=== PATIENT | female | born 1990 | race African-American/Black ===

== ENCOUNTER 2019-04-23 11:22 | Emergency (ER) | payer OTHER ==
[2019-04-23 12:14] LABS: Bilirubin Negative (Negative); Blood, Urine Negative (Negative); Glucose, Urine (Dipstick) Negative (Negative); Leukocyte Small (Negative); Nitrite Negative (Negative); Protein, Urine (Dipstick) Negative (Neg-Trace); Urobilinogen 0.2 mg/dL (Less than 2)
[2019-04-23 12:16] LABS: Clarity Clear (Clear)
[2019-04-23 12:22] LABS: #Lymphocytes 1.6 thou/uL (1.20-3.40); #Monocytes 0.5 thou/uL (0.11-0.59); #Neutrophils 4.2 thou/uL (1.40-6.50); %Basophils 0.7 % (0.0-1.0); %Eosinophils 0.8 % (0.0-10.0); %Lymphocytes 24.6 % (21.0-51.0); %Monocytes 8.5 % (0.0-10.0); %Neutrophils 65.5 % (42.0-75.0); Hemoglobin 12.7 g/dL (12.0-16.0); Mean Corpuscular HGB CONC 32.7 g/dL (32.0-36.0); Mean Corpuscular Hemoglobin 29.9 pg (27.0-31.0); Mean Corpuscular Volume 91.4 fL (78.0-98.0); Mean Platelet Volume 6.6 fL (7.4-10.4); Platelet Count 287 thou/uL (130-400); RBC Distribution Width 11.9 % (11.5-14.5); Red Blood Cell (RBC) Count 4.24 mill/uL (4.20-5.40); White Blood Cell (WBC) Count 6.4 thou/uL (4.8-10.8)
[2019-04-23 12:25] LABS: Bacteria/HPF None Seen HPF (None Seen); RBC/HPF 0-3 HPF (0-3); Squamous Epithelial 0-3 HPF (0-3); WBC/HPF 0-3 HPF (0-3)
--- NOTE | 2019-04-23 12:41 | ULT ---
First trimester obstetrical ultrasound INDICATION: Pelvic pain with history of COMPARISON: None TECHNIQUE: Grayscale, color Doppler, spectral Doppler and in mode Doppler was obtained of the pelvis via transabdominal approach. FINDINGS: The uterus measures 11.1 x 9.0 x 9.3 cm. There is a single live intrauterine gestation seen within the uterus. A pole is identified with cardiac activity noted at 163 bpm. No perigestational hemorrhage is grossly evident. [place]-rump length measured 4.45 cm 2. The estimated gestational age by ultrasound is a 11 weeks and 2 days with estimated due date of 2019. The clinical age is 10 weeks and 2 days estimated due date of November 17, 2019. The visualized adnexa appear within normal limits. The right ovary measured 2.3 x 1.5 x 2.1 cm. The l eft or measures 2.1 x 4.5 x 3.6 mm. There is normal flow to both ovaries. No free fluid is identified. IMPRESSION: Single live intrauterine gestation with size and dates as above.
[2019-04-23 12:51] LABS: ALT (SGPT) 7 U/L (8-55); AST (SGOT) 10 U/L (5-34); Albumin 3.7 g/dL (3.5-5.0); Alkaline Phosphatase 39 U/L (40-150); Anion Gap 10 mmol/L (10-20); BUN (Urea Nitrogen) 6 mg/dL (7.0-18.7); Bilirubin, Total 0.3 mg/dL (0.2-1.2); Calc. Creatinine Clearance 0 mL/min (70-130); Calcium 8.8 mg/dL (7.8-10.44); Carbon Dioxide 21 mmol/L (22-29); Chloride 105 mmol/L (98-107); Estimated GFR-MDRD Greater than 90; Globulin 3.2 g/dL (2.4-3.5); Glucose 81 mg/dL (70-105); Potassium 3.7 mmol/L (3.5-5.1); Protein, Total 6.9 g/dL (6.0-8.3); Sodium 132 mmol/L (136-145)
== END 2019-04-23 13:45 | disposition home or self-care (01) ==
LOC: ERS 11:22
DX: O20.0 Threatened abortion (principal); O99.341 Other mental disorders complicating pregnancy, first trimester; F41.9 Anxiety disorder, unspecified; Z3A.10 10 weeks gestation of pregnancy
CPT/HCPCS: 36415; 76856; 80053; 81003; 81015; 84702; 85025; 86900; 86901; 93976

== ENCOUNTER 2019-07-21 13:13 | Day surgery (SDC) | payer OTHER ==
[2019-07-21 13:50] VITALS: BP 107/59; TEMP 98.6; BMI 24.7
[2019-07-21] MEDS ORDERED: hydrALAZINE 20 MG/ML VIAL SLOW IVP PRN (14:05)
--- NOTE | 2019-07-21 14:11 | PDOC.FPROB ---
FMR OB H&P: HPI - History of Present Illness Chief Complaint: Back pain History of Present Illness: 29 yo @ 23.0 weeks presents for L sided low back pain that began 2 days ago. Pain is intermittent, described as a sharp pain that lasts 3 seconds and spontaneously resolves. No identifiable triggers, not exacerbated by movement. Denies radiation. 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 Denies dysuria, VD, VB. Reports movement. 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 - Family History Family History: Mother-DM, MM FMR OB H&P: Medications - Current Home Medications: Medication Instructions Recorded Confirmed Type Pnv No.95/Ferrous Fum/Folic AC 1 each PO DAILY 07/21/19 07/21/19 History [ Formula] Allergies/Adverse Reactions: Allergies Allergy/AdvReac Type Severity Reaction Status Date / Time No Known Allergies Allergy Verified 07/21/19 13:43 FMR OB H&P: ROS - Review of Systems General: denies: fever/chills, weight/appetite/sleep changes Eyes: denies: vision changes, double vision ENT: denies: nasal congestion, rhinorrhea Cardiovascular: denies: chest pain, edema Respiratory: denies: cough, shortness of breath, exercise intolerance Gastrointestinal: denies: abdominal pain, nausea, vomiting, diarrhea Genitourinary (Female): denies: dysuria, vaginal discharge, vaginal bleeding, contractions Musculoskeletal: reports: pain, tenderness Neurologic: denies: numbness, weakness Integumentary: denies: rash, lesions Psychological: denies: depression, anxiety FMR OB H&P: Vital Signs - Maternal Vital signs: Vital Signs - First Documented Temp Pulse Resp BP 98.6 F 81 18 107/59 L 07/21/19 13:32 07/21/19 13:32 07/21/19 13:32 07/21/19 13:32 - Heart Tones Baseline: 155 FMR OB H&P: Physical Exam - Physical Exam General: NAD, awake, alert and oriented HEENT: normocephalic and atraumatic Heart: RRR, normal S1/S2, no murmurs/rubs/gallops, no edema General: CTAB, no respiratory distress, no wheezing Abdomen: soft, gravid Musculoskeletal: normal gait and station, other (tight L paraspinal muscles slightly TTP, no CVA tenderness) Skin: no rash, good tugor Lymphatic: no unusual bruising or bleeding Psychiatric: normal mood and affect FMR OB H&P: A/P - Problem List (1) Back pain affecting Status: Acute Code(s): O99.89 - OTH DISEASES AND CONDITIONS COMPL PREG/ CHLDBRTH; M54.9 - DORSALGIA, UNSPECIFIED Discussion: Date/Time: 07/21/19 1407 Back pain -UA negative for infection or blood. Do not suspect nephrolithiasis at this time. -Pain most likely due to MSK origin/nerve impingement. Discussed conservative therapy with stretching, heating pads. May take tylenol as needed but likely will not help with impingement. Patient expressed understanding. Has follow up with Dr. Martin 08/01. Patient discharged home. This H&P was discussed with Dr. Keane who agree with the above documentation and plan. Addendum - Attending - Attending Attestation Date/Time: 07/24/19 0702 I personally evaluated the patient and discussed the management with Dr. Ronquillo I agree with the History, Examination, Assessment and Plan documented above with any addition or exceptions noted below. vitals reviewed and wnl on physical exam pt had tenderness to palpation of paravertebral musculature. No cva tendeness appreciated. Pt worked through some stretching of her vertebral column and associated muscles Stretching and leg strengthening discussed and reviewed. discharged home with precautions
[2019-07-21 14:34] LABS: Bacteria/HPF None Seen HPF (None Seen); Bilirubin Negative (Negative); Blood, Urine Negative (Negative); Clarity Clear (Clear); Glucose, Urine (Dipstick) 50 mg/dL (Negative); Leukocyte Negative Leu/uL (Negative); Mucous/LPF 2+ LPF (<2+); Nitrite Negative (Negative); Protein, Urine (Dipstick) 20 mg/dL (Neg-Trace); RBC/HPF 0-3 HPF (0-3); Squamous Epithelial 0-3 HPF (0-3); Urobilinogen Normal mg/dL (Less than 2); WBC/HPF 0-3 HPF (0-3)
[2019-07-21] MEDS ORDERED: FLU VACC QS2019-20(6MOS UP)/PF 60 MCG/0.5 ML SYRINGE IM ONE (23:59)
== END 2019-07-21 15:09 | disposition home or self-care (01) ==
LOC: L&D/OP 13:13
PROVIDERS: ATTEND Obstetrics & Gynecology
DX: O99.89 Other specified diseases and conditions complicating pregnancy, childbirth and the puerperium (principal); M54.9 Dorsalgia, unspecified; Z3A.23 23 weeks gestation of pregnancy
CPT/HCPCS: 81001

== ENCOUNTER 2019-08-03 05:47 | Day surgery (SDC) | payer OTHER ==
[2019-08-03 06:08] VITALS: BMI 23.8
[2019-08-03] MEDS ORDERED: FLU VACC QS2019-20(6MOS UP)/PF 60 MCG/0.5 ML SYRINGE IM ONE (06:15)
--- NOTE | 2019-08-03 06:39 | PDOC.FPROB ---
FMR OB H&P: HPI - History of Present Illness Chief Complaint: abodminal cramping Indentification: History of Present Illness: 29YO @ 24.6 WGA presenting to L&D with a CC of lower abdominal cramping that comes and goes that began at ~2100 last night. Per the patient the pain gets up to 8/10 in severity at its worst & occurs more than once in an hour but states she hasn't been timing it exactly. Denies any associated fever/chills, N/ V, dysuria, hematuria, VB, LOF, itching or discharge. Endorses regular movement. 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 History: No h/o STIs - Surgical History Sx History: None - Social History Social History: No TAD - Family History Family History: Mother- HTN Father- DMII FMR OB H&P: Medications - Current Home Medications: Medication Instructions Recorded Confirmed Type Pnv No.95/Ferrous Fum/Folic AC 1 each PO DAILY 07/21/19 08/03/19 History [ Formula Tablet] Allergies/Adverse Reactions: Allergies Allergy/AdvReac Type Severity Reaction Status Date / Time No Known Allergies Allergy Verified 08/03/19 06:06 FMR OB H&P: ROS - Review of Systems General: denies: fever/chills, recent trauma Eyes: denies: vision changes ENT: denies: nasal congestion, rhinorrhea, sore throat Cardiovascular: denies: chest pain, palpitation Gastrointestinal: reports: abdominal pain, cramping. denies: nausea, vomiting, diarrhea, bright red blood, dark black tarry stools Genitourinary (Female): reports: vaginal pressure. denies: dysuria, hematuria, vaginal discharge, vaginal bleeding Neurologic: denies: syncope, headache Integumentary: denies: itching, rash Psychological: denies: depression FMR OB H&P: Vital Signs - Maternal Vital signs: BP: 113/67 HR: 75 O2 sat: 100% on RA Tmax: 98.9F - Heart Tones Baseline: 250 Variability: moderate Acceleration: present Deceleration: absent [place] contractions every: none noted FMR OB H&P: Physical Exam - Physical Exam General: NAD, awake, alert and oriented HEENT: normocephalic and atraumatic, MMM, conjunctiva clear, grossly normal vision, grossly normal hearing Neck: supple, FROM Heart: RRR, normal S1/S2, no murmurs/rubs/gallops, pulses present, no edema General: CTAB, no respiratory distress, good air movement, no rales/rhonchi, no wheezing, no retractions Abdomen: soft, gravid, bowel sound present, other (TTP across lower abdomen w/ no guarding or rebound, R>L) Musculoskeletal: pulses present, FROM in all four extremities Neurological: cranial nerves II through XII intact, sensation to pain,touch and proprioception grossly normal, no focal deficit Skin: no rash, good tugor, capillary refill <2 seconds Lymphatic: no unusual bruising or bleeding, no purpura, no petechia Psychiatric: intact recent and remote memory, good judgement and insight, normal mood and affect - Pelvic Exam Vulva: normal hair distribution, appropriate teto stage, no masses, no lesions Cervix: no masses, no lesions Deviation from normal: moderate amount of yellow/white d/c noted on speculum exam w/ friable cervi SVE: closed/thick/-2 FMR OB H&P: A/P - Problem List (1) Abdominal pain affecting , antepartum Status: Acute Code(s): O26.899 - OTH RELATED CONDITIONS, UNSPECIFIED TRIMESTER; R10.9 - UNSPECIFIED ABDOMINAL PAIN Disposition: 29YO @ 24.6 WGA who presented to L&D with a CC of lower abdominal cramping that has been occurring on and off since 2100 last night. Abdominal cramping in : - No contractions noted on monitor since arrival & FHTs reassuring w/ baseline in the 150s & accels w/ variability. - SVE @ 0650 was closed/thick/-2 but was very tender on exam so a speculum exam was done. - GC/Chlamydia & VP3 swabs obtained during spec exam as a moderate amount of d/ c was noted & cervix was mildly friable in appearance. - Clean catch UA also obtained to r/o a UTI as a possible etiology. Dispo: Based on SVE & monitoring, no concern for labor so will d/c home & follow -up with patient regarding lab test results PRN. Discussion: Date/Time: 08/03/19638 This H&P was discussed with Dr. Dwyer who agrees with the above documentation and plan. Addendum - Attending - Attending Attestation Date/Time: 08/03/19 08 I personally evaluated the patient and discussed the management with Dr. Guan. I agree with the History, Examination, Assessment and Plan documented above.
[2019-08-03 06:41] VITALS: BP 113/67; TEMP 98.9
[2019-08-03] MEDS ORDERED: hydrALAZINE 20 MG/ML VIAL SLOW IVP PRN (06:51)
[2019-08-03 07:43] LABS: Bacteria/HPF None Seen HPF (None Seen); Bilirubin Negative (Negative); Blood, Urine Negative (Negative); Clarity Clear (Clear); Glucose, Urine (Dipstick) Normal (Negative); Leukocyte Negative Leu/uL (Negative); Nitrite Negative (Negative); Protein, Urine (Dipstick) Negative (Neg-Trace); RBC/HPF 0-3 HPF (0-3); Squamous Epithelial None Seen HPF (0-3); Urobilinogen Normal mg/dL (Less than 2); WBC/HPF 0-3 HPF (0-3)
[2019-08-03 07:47] LABS: Urine Culture Reflex No No
[2019-08-04 21:36] LABS: Chlamydia by PCR Not Detected (NotDetected); GC by PCR Not Detected (NotDetected)
== END 2019-08-03 07:20 | disposition home or self-care (01) ==
LOC: L&D/OP 05:47
PROVIDERS: ATTEND Obstetrics & Gynecology
DX: O26.892 Other specified pregnancy related conditions, second trimester (principal); R10.30 Lower abdominal pain, unspecified; Z3A.24 24 weeks gestation of pregnancy
CPT/HCPCS: 81001; 87480; 87491; 87510; 87591; 87660

== ENCOUNTER 2019-08-03 23:14 | Inpatient (IN) | payer OTHER ==
[2019-08-03 23:46] VITALS: BMI 25.3
[2019-08-04] MEDS ORDERED: hydrALAZINE 20 MG/ML VIAL SLOW IVP PRN ×2 (00:10→04:13)
[2019-08-04] MEDS ORDERED: Lactated Ringer's 1,000 ML IV SCH ×2 (00:15→02:15)
--- NOTE | 2019-08-04 00:40 | PDOC.FPROB ---
FMR OB H&P: HPI - History of Present Illness Chief Complaint: Pelvic pain/contractions Indentification: 29 year old at 25 wks History of Present Illness: 29 year old at 25 weeks with SUBHASH 11/17/2019 presents with worsening pelvic pain. Patient states that she came to L&D early this morning with similar pain which started at 21:00 the following night. She states that it acutely worsened this morning, which prompted her earlier visit to L&D. She went home, rested and is now back with pain that is inhibiting her from being able to walk. Patient describes the pain as intermittent and feels similar to contractions she experienced in previous . She denies vaginal bleeding , LoF, or vaginal discharge. Patient endorses movement. She denies any history of tobacco or drug use. Patient has no history of STD's. Patient endorses nausea over the last 24 hours secondary to pain. She has also had decreased appetite during this time. Primary Care Physician: Dr. 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 History: Denies history of STD's or PID - Surgical History Sx History: Denies - Social History Social History: Denies history of tobacco, alcohol, or drug use - Family History Family History: Mother: HTN Father: DM type II FMR OB H&P: Medications - Current Home Medications: Medication Instructions Recorded Confirmed Type Pnv No.95/Ferrous Fum/Folic AC 1 each PO DAILY 07/21/19 08/03/19 History [ Formula Tablet] Allergies/Adverse Reactions: Allergies Allergy/AdvReac Type Severity Reaction Status Date / Time No Known Allergies Allergy Verified 08/03/19 23:39 FMR OB H&P: ROS - Review of Systems General: reports: weight/appetite/sleep changes. denies: fever/chills Eyes: denies: vision changes, double vision ENT: denies: nasal congestion, sore throat Cardiovascular: denies: chest pain, palpitation, edema Respiratory: denies: cough, congestion, shortness of breath Gastrointestinal: reports: abdominal pain, cramping, nausea. denies: vomiting, diarrhea Genitourinary (Female): reports: contractions. denies: dysuria, vaginal discharge, vaginal bleeding, vaginal pressure Musculoskeletal: denies: pain, stiffness Neurologic: denies: syncope, seizures Integumentary: denies: itching, rash, lesions Hematologic/Lymphatic: denies: prolonged or excessive bleeding Psychological: reports: other (panic disorder) FMR OB H&P: Vital Signs - Maternal Vital signs: Vital Signs - First Documented Temp Pulse Resp BP Pulse Ox 99.2 F 83 18 111/63 99 08/03/19 23:38 08/03/19 23:38 08/03/19 23:38 08/03/19 23:38 08/03/19 23:38 - Heart Tones Baseline: 135 Variability: moderate [place] contractions every: q5 min FMR OB H&P: Physical Exam - Physical Exam General: NAD, awake, alert and oriented HEENT: MMM, grossly normal vision, grossly normal hearing Heart: RRR, pulses present Deviation from normal: 2/6 systolic murmur General: CTAB, no respiratory distress Abdomen: soft, gravid Deviation from normal: mildly tender in suprapubic region Musculoskeletal: pulses present, FROM in all four extremities Neurological: no tremor, no focal deficit Skin: no rash, capillary refill <2 seconds Psychiatric: intact recent and remote memory, good judgement and insight, normal mood and affect FMR OB H&P: A/P - Problem List (1) Status: Acute Qualifiers: Weeks of gestation: 25 weeks Qualified Code(s): Z3A.25 - 25 weeks gestation of (2) Panic disorder Status: Chronic Code(s): F41.0 - PANIC DISORDER [EPISODIC PAROXYSMAL ANXIETY] (3) Abdominal pain affecting , antepartum Status: Acute Code(s): O26.899 - OTH RELATED CONDITIONS, UNSPECIFIED TRIMESTER; R10.9 - UNSPECIFIED ABDOMINAL PAIN Disposition: 29 year old at 25 wks presents with pelvic pain sIUP, contractions - at 25 wks - No complications in current - IV hydrate, s/p 2L LR - Given patient has had vaginal/cervical manipulation in last 24 hours, FFN will not be useful - Cervical length 3.78 cm without contraction and 2.81 cm with contraction - Cervical exam closed/thick/-2 in budget accountant on 08/03, exam at 2:00 on 1/thick/high - GC/CT pending from swab done earlier - VP3 on 08/03 negative - UA on 08/03 negative - UDS negative - Patient fr[place] q3-6 minutes despite fluid hydration - Betamethasone x1 given; will give 2nd dose in 24h - Indomethacin given 100 mg loading dose; will start on 25 mg PO q6h for tocolysis - Will initiate Mg for neurotoxicity given <32 wks gestation - Discussed risk for PTD given continued contractions. Will notify NICU to have discussion with patient. Patient will need close monitoring - No ROM - CASSIE 16 cm - EFW 927 g - Will obtain GBS prior to any antibiotic administration Hx PTD 2/2 oligohydramnios - at 36 wks Panic disorder - Not currently on medications - Appears well controlled Dispo: Admit to L&D for tocolysis, Mg, and steroids. If patient looks to be making change, then may consider transfer to higher level of care given [address] Martin of admission. Discussion: Date/Time: 08/04/19 0038 This H&P was discussed with Dr. Keane who agrees with the above documentation and plan. Signature: Madeleine Torres, PGY-3 Addendum - Attending - Attending Attestation Date/Time: 08/06/19 2756 I personally evaluated the patient and discussed the management with Dr. Torres I agree with the History, Examination, Assessment and Plan documented above with any addition or exceptions noted below PT is a 29yo female representing with worsening uterine contractions. cervical change from closed to 1cm. cervical length >2.5cm with contractions. Indocin used in an effort to slow ucx. will add magnesium if labor progression observed. Steroids for fetus maturity started. Will start abx if labor progression observed. Dr Martin will be given update in the morning. He Will likely be assuming care.
[2019-08-04] MEDS: Lactated Ringer's 1,000 ML IV SCH ×3 (02:20→20:54)
[2019-08-04] MEDS: Betamet Acet/Betamet Na Ph 30 MG/5 ML VIAL IM SCH (02:29)
[2019-08-04] MEDS ORDERED: Indomethacin 25 mg Capsule PO SCH (02:30)
[2019-08-04 03:03] LABS: Amphetamine Not Detected (NotDetected); Benzodiazepine Screen Not Detected (NotDetected); Cocaine Metabolite Screen Not Detected (NotDetected); Medtox Reader # READER 4; Methadone Not Detected (NotDetected); Methamphetamine Not Detected (NotDetected); Opiate Screen Not Detected (NotDetected); Phencyclidine (PCP) Not Detected (NotDetected); THC/Cannabinoid Screen Not Detected (NotDetected); Tricyclic Screen Not Detected (NotDetected)
[2019-08-04 03:04] LABS: Barbiturates Screen Not Detected (NotDetected); Medtox Control Line Valid? VALID (VALID); Oxycodone Screen Not Detected (NotDetected)
[2019-08-04] MEDS ORDERED: Calcium Gluconate 4.6 MEQ in Sodium Chloride 0.9% 100 ML IVPB PRN (04:02)
[2019-08-04] MEDS ORDERED: Magnesium Sulfate 20 gm/500 ml 20 GM/500 ML BAG ONE (04:07)
[2019-08-04] MEDS ORDERED: Ondansetron PF 4 MG/2 ML Vial IVP PRN (04:13)
[2019-08-04] MEDS ORDERED: Promethazine HCl 25 MG/ML VIAL IM PRN (04:13)
[2019-08-04] MEDS ORDERED: Acetaminophen 500 MG TAB PO PRN (04:13)
[2019-08-04] MEDS ORDERED: Magnesium Sulfate 20 GM/WATER 500 ML BAG IVPB SCH (04:15)
[2019-08-04] MEDS ORDERED: Magnesium Sulfate 20 gm/500 ml 20 GM/500 ML BAG IVPB SCH (04:15)
[2019-08-04] MEDS ORDERED: Vancomycin HCl 1 GM in Premix Bag 1 BAG IVPB SCH ×2 (04:30→05:00)
[2019-08-04] MEDS ORDERED: Piperacillin/Tazobactam 3.375 GM in Sodium Chloride 0.9% 100 ML IVPB SCH (06:00)
[2019-08-04 06:52] LABS: Hemoglobin 11.8 g/dL (12.0-16.0); Mean Corpuscular HGB CONC 33.9 g/dL (32.0-36.0); Mean Corpuscular Hemoglobin 30.1 pg (27.0-31.0); Mean Corpuscular Volume 88.7 fL (78.0-98.0); Mean Platelet Volume 7.3 fL (7.4-10.4); Platelet Count 232 thou/uL (130-400); Red Blood Cell (RBC) Count 3.93 mill/uL (4.20-5.40); White Blood Cell (WBC) Count 12.7 thou/uL (4.8-10.8)
[2019-08-04 07:28] LABS: Hep B Surf Ag Non-Reactive S/CO (NonReactive); Syphilis Antibody Nonreactive (Nonreactive); Syphilis Antibody Index 0.04 S/CO (<1.00 Non-Reactive)
--- NOTE | 2019-08-04 08:00 | ULT ---
PRELIMINARY REPORT/[facility]/EMERGENCY AFTER HOURS PROCEDURE: PROCEDURE INFORMATION: Exam: US , Limited Exam date and time: 08/04/2019 1:21 AM Clinical history: 29 years old, female; Labor and delivery abnormalities; Other: Contractions at 25wks, eval cervix; TECHNIQUE: Imaging protocol: Real-time ultrasound of the maternal uterus with image documentation. Exam focused on the clinical indication. COMPARISON: No relevant prior studies available. FINDINGS: Transvaginal ultrasound was performed for evaluation of the cervix. Initially cervix is closed measur ing 3.8cm in length. However later on during the study, cervix measures 2.8cm with contraction. IMPRESSION: Cervical shortening described above. Thank you for allowing us to participate in the care of your patient. Dictated and Authenticated by: Rodney Kidd MD 08/04/2019 2:10 AM Central Time ([place] & [place]) FINAL REPORT EMERGENCY AFTER HOURS STUDY ULTRASOUND TRANSVAGINAL LIMITED: DATE: 08/04/2019. TIME: 1:30 AM. HISTORY: A 29-year-old female with labor. FINDINGS: Maternal cervix is closed. Initially, it measures 3.8 cm in length. Later, it is 2.8 cm. Low-lying pl acenta. No placenta previa. Agree with preliminary report by [facility]. IMPRESSION: 1. Cervix is closed. 2. Interval shortening of cervical length during exam. Transcribed Date/Time: 08/04/2019 8:09 AM
[2019-08-04] MEDS: Indomethacin 25 mg Capsule PO SCH ×3 (08:33→20:49)
--- NOTE | 2019-08-04 08:54 | ULT ---
ULTRASOUND OBSTETRICAL COMPLETE: DATE: 08/04/2019 HISTORY: contractions during second trimester in 29-year-old female. FINDINGS: There is an approximately 2.5 cm mass like structure in the anterior myometrium with echogenicity sim ilar to that of surrounding myometrium. number: rooney lie: Transverse Maternal cervix: 2.5 cm. Closed. Placenta: Posterior. No previa. Amniotic fluid volume: CASSIE = 16.5cm heart rate: 140 bpm The following anatomy is visualized, with no evidence of anomalies: Head, cerebellum, lateral ventricles, four-chamber heart, stomach, kidneys, cord insertion, bladder, cervical spine, thoracic spine, lumbar spine, sacrum, nose and lips, and three-vessel cord. biometry: Biparietal diameter (BPD): 6.3 cm 25 w 3 d Head circumference (HC): 24.2 cm 26 w 2 d Abdominal circumference (AC): 22.0 cm 26 w 3 d Femur length (FL): 4.9 cm 26 w 3 d Average ultrasound age (AUA): 26 w 1 d Estimated date of delivery (SUBHASH): 11/09/2019 Estimated weight (EFW): 927 g +/- 137 g IMPRESSION: 1) Live 2nd trimester intrauterine gestation. 2) Estimated gestational age of 26 weeks, 1 days 3) transverse lie. 4) no anatomic abnormality identified, but upper and lower limbs not included on images. 5) 2.5 cm uterine mass. This could be a small leiomyoma (fibroid). Less likely to be uterine contract ion. Follow-up recommended..
[2019-08-04] MEDS ORDERED: FLU VACC QS2019-20(6MOS UP)/PF 60 MCG/0.5 ML SYRINGE IM ONE (09:00)
[2019-08-04] MEDS ORDERED: hydrOXYzine Pamoate 25 mg Capsule PO PRN (10:03)
--- NOTE | 2019-08-04 14:08 | PDOC.EVN ---
Event Note - Event Note Event Note: History of Present Illness: 29 year old at 25 weeks with SUBHASH 11/17/2019 presents with worsening pelvic pain. Patient states that she came to L&D early this morning with similar pain which started at 21:00 the following night. She states that it acutely worsened this morning, which prompted her earlier visit to L&D. She went home, rested and is now back with pain that is inhibiting her from being able to walk. Patient describes the pain as intermittent and feels similar to contractions she experienced in previous . She denies vaginal bleeding , LOF, or vaginal discharge. Patient endorses movement. She denies any history of tobacco or drug use. Patient has no history of STD's. Patient endorses nausea over the last 24 hours secondary to pain. She has also had decreased appetite during this time. 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: Denies history of STD's or PID - Surgical History Sx History: Denies - Social History Social History: Denies history of tobacco, alcohol, or drug use - Family History Family History: Mother: HTN Father: DM type II OB H&P: Medications - Current Home Medications: Medication Instructions Recorded Confirmed Type Pnv No.95/Ferrous Fum/Folic AC 1 each PO DAILY 07/21/19 08/03/19 History [ Formula Tablet] Allergies/Adverse Reactions: Allergies Allergy/AdvReac Type Severity Reaction Status Date / Time No Known Allergies Allergy Verified 08/03/19 23:39 H&P: ROS - Review of Systems General: reports: weight/appetite/sleep changes. denies: fever/chills Eyes: denies: vision changes, double vision ENT: denies: nasal congestion, sore throat Cardiovascular: denies: chest pain, palpitation, edema Respiratory: denies: cough, congestion, shortness of breath Gastrointestinal: reports: abdominal pain, cramping, nausea. denies: vomiting, diarrhea Genitourinary (Female): reports: contractions. denies: dysuria, vaginal discharge, vaginal bleeding, vaginal pressure Musculoskeletal: denies: pain, stiffness Neurologic: denies: syncope, seizures Integumentary: denies: itching, rash, lesions Hematologic/Lymphatic: denies: prolonged or excessive bleeding Psychological: reports: other (panic disorder) Physical Exam General: NAD, awake, alert and oriented HEENT: MMM, grossly normal vision, grossly normal hearing Heart: RRR, pulses present Deviation from normal: 2/6 systolic murmur General: CTAB, no respiratory distress Abdomen: soft, gravid Deviation from normal: mildly tender in suprapubic region Musculoskeletal: pulses present, FROM in all four extremities Neurological: no tremor, no focal deficit Skin: no rash, capillary refill <2 seconds Psychiatric: intact recent and remote memory, good judgement and insight, normal mood and affect OB H&P: A/P - Problem List (1) Current Visit: Yes Status: Acute Qualifiers: Weeks of gestation: 25 weeks Qualified Code(s): Z3A.25 - 25 weeks gestation of (2) Panic disorder Current Visit: Yes Status: Chronic Code(s): F41.0 - PANIC DISORDER [ EPISODIC PAROXYSMAL ANXIETY] (3) Abdominal pain affecting , antepartum Current Visit: No Status: Acute Code(s): O26.899 - OTH RELATED CONDITIONS, UNSPECIFIED TRIMESTER; R10.9 - UNSPECIFIED ABDOMINAL PAIN Disposition: ASSESSMENT: 29 year old at 25 wks presents with pelvic pain/threatened Labor. Contractions are now very minimal and almost gone. Immediate threat of PTL appears significantly decreased. Will continue the current plan with reevaluation tomorrow, and possible DC to home after 2nd dose of BMZ if stable, with close clinic supervision. 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 from shift superintendent: - No complications in current - IV hydrate, s/p 2L LR - Given patient has had vaginal/cervical manipulation in last 24 hours, FFN will not be useful - Cervical length 3.78 cm without contraction and 2.81 cm with contraction - Cervical exam closed/thick/-2 in maintenance aide on 08/03, exam at 2:00 on 1/thick/high - GC/CT pending from swab done earlier - VP3 on 08/03 negative - UA on 08/03 negative - UDS negative - Betamethasone x1 given; will give 2nd dose in 24h - Indomethacin given 100 mg loading dose; will start on 25 mg PO q6h for tocolysis - Discussed risk for PTD given continued contractions. - CASSIE 16 cm - EFW 927 g PLAN: 1. Admit to L&D for tocolysis 2. BMZ 3. Bedrest 4. Monitoring for CTX's
[2019-08-05] MEDS: Betamet Acet/Betamet Na Ph 30 MG/5 ML VIAL IM SCH (02:43)
[2019-08-05] MEDS: Indomethacin 25 mg Capsule PO SCH ×3 (02:43→15:20)
[2019-08-05] MEDS: Lactated Ringer's 1,000 ML IV SCH (10:07)
[2019-08-05 12:28] VITALS: BP 117/61
[2019-08-05 16:12] VITALS: TEMP 98.3
[2019-08-05 16:22] LABS: Bacteria/HPF None Seen HPF (None Seen); Bilirubin Negative (Negative); Blood, Urine Negative (Negative); Clarity Clear (Clear); Glucose, Urine (Dipstick) Greater than 1000 mg/dL (Negative); Leukocyte Negative Leu/uL (Negative); Nitrite Negative (Negative); Protein, Urine (Dipstick) 10 mg/dL (Neg-Trace); RBC/HPF 0-3 HPF (0-3); Squamous Epithelial 0-3 HPF (0-3); Urobilinogen Normal mg/dL (Less than 2); WBC/HPF 0-3 HPF (0-3)
[2019-08-06 21:29] LABS: Chlamydia by PCR Not Detected (NotDetected); GC by PCR Not Detected (NotDetected)
== END 2019-08-05 18:10 | disposition home or self-care (01) | DRG 833 ==
LOC: L&D/OP 23:14 → L&D-LIB 08-04 04:45
PROVIDERS: ADMIT Obstetrics & Gynecology; ATTEND Obstetrics & Gynecology
DX: O60.02 Preterm labor without delivery, second trimester (principal); O99.342 Other mental disorders complicating pregnancy, second trimester; F41.0 Panic disorder [episodic paroxysmal anxiety]; Z3A.25 25 weeks gestation of pregnancy; Z23 Encounter for immunization
CPT/HCPCS: 36415; 76815; 80306; 81001; 83735; 85027; 86780; 86850; 86900; 86901; 87081; 87340; 87480; 87491; 87510; 87591; 87660; 99283; 99285; J0702; J2543; J3475; J3490; Q0177

== ENCOUNTER 2019-09-13 15:38 | Day surgery (SDC) | payer OTHER ==
[2019-09-13 16:07] VITALS: BMI 26.7
[2019-09-13] MEDS ORDERED: hydrALAZINE 20 MG/ML VIAL SLOW IVP PRN (16:49)
[2019-09-13 17:25] LABS: Bacteria/HPF None Seen HPF (None Seen); Bilirubin Negative (Negative); Blood, Urine Negative (Negative); Clarity Clear (Clear); Glucose, Urine (Dipstick) Normal (Negative); Leukocyte Negative Leu/uL (Negative); Nitrite Negative (Negative); Protein, Urine (Dipstick) Negative (Neg-Trace); RBC/HPF 0-3 HPF (0-3); Squamous Epithelial 0-3 HPF (0-3); Urobilinogen Normal mg/dL (Less than 2); WBC/HPF 0-3 HPF (0-3)
[2019-09-13 17:50] LABS: Fetal Fibronectin Negative (Negative)
[2019-09-13 17:51] LABS: FFN Internal QC Analyzer PASS (PASS); FFN Internal QC Cassette PASS (PASS)
--- NOTE | 2019-09-13 19:18 | PRG ---
DATE OF SERVICE: 09/13/2019 PRIMARY OB: Dr. yTler Martin. CHIEF COMPLAINT: Abdominal pain. HISTORY OF PRESENT ILLNESS: The patient is a 29-year-old G4, P1 female with an intrauterine at 30 weeks and 5 days presenting with abdominal pains, that she reports it began earlier today. It had been present for last couple of days actually and has gotten worse today. The patient denies any vaginal discharge, urinary urgency, fever, bleeding, leakage of fluid. She does have a history of contractions about 4 or 5 weeks ago, resulting in steroids and observation in the hospital and indomethacin and magnesium. The patient denies intercourse in the last several days. PAST MEDICAL HISTORY: Panic disorder. PAST SURGICAL HISTORY: Negative. The patient has 1 delivery induced for oligohydramnios at 36 weeks. SOCIAL HISTORY: Denies drug, alcohol, or tobacco use. MEDICATIONS: vitamins. ALLERGIES: NO KNOWN DRUG ALLERGIES. OB LABS: Unavailable at time of dictation. REVIEW OF SYSTEMS: Per HPI. PHYSICAL EXAMINATION: VITAL SIGNS: Blood pressure is 102/56, heart rate of 76, saturating 100% on room air, temperature 97.9. GENERAL: She appears to be in no acute distress. She is alert, oriented, cooperative, and pleasant to interact with. HEENT: Head; normocephalic, atraumatic. LUNGS: Clear to auscultation bilaterally. HEART: Regular rate and rhythm. ABDOMEN: Gravid and soft. EXTREMITIES: Nontender, nonedematous. : Vulva without masses, lesions, or erythema. Vagina is moist with significant amount of discharge. Cervix is visibly closed with no erythema. On digital exam, cervix is closed and is thick. heart tracing shows the fetus with a baseline in the 130s with moderate long-term variability, positive 15 x 15 accelerations, no decelerations. She has some irritability on the monitor. LABORATORY DATA: fibronectin was collected and is negative. Urinalysis is negative for protein, ketones, blood, nitrites, leukocyte esterase, bacteria, white blood cells, BP 3, negative for Trichomonas and Hien, positive for Gardnerella. ASSESSMENT AND PLAN: The patient is a 29-year-old female, having contractions, but no evidence of labor. She does have evidence of bacterial vaginosis, for which we will treat with metronidazole 500 mg twice a day for the next week. She has been counseled to follow up with her primary OB as scheduled and has been given labor precautions, and fetus has a category 1 tracing and reactive NST. Job ID: [id number]
[2019-09-14] MEDS ORDERED: FLU VACC QS2019-20(6MOS UP)/PF 60 MCG/0.5 ML SYRINGE IM ONE (16:45)
== END 2019-09-13 18:38 | disposition home or self-care (01) ==
LOC: L&D/OP 15:38
PROVIDERS: ATTEND Obstetrics & Gynecology
DX: O47.03 False labor before 37 completed weeks of gestation, third trimester (principal); O23.593 Infection of other part of genital tract in pregnancy, third trimester; B96.89 Other specified bacterial agents as the cause of diseases classified elsewhere; Z3A.30 30 weeks gestation of pregnancy
CPT/HCPCS: 81001; 82731; 87480; 87510; 87660

== ENCOUNTER → 2019-09-22 | Day surgery (SDC) | payer OTHER ==
[~2019-09-22] MED LIST: FLU VACC QS2019-20(6MOS UP)/PF 60 MCG/0.5 ML SYRINGE IM ONE; Oxytocin 10 UNITS/ML VIAL ONE; hydrALAZINE 20 MG/ML VIAL SLOW IVP PRN
[2019-09-22 11:55] VITALS: BP 102/64; TEMP 98.7; BMI 25.9
--- NOTE | 2019-09-22 12:12 | PDOC.FPROB ---
FMR OB H&P: HPI - History of Present Illness Chief Complaint: Abdominal pain, hip pain, vaginal bleeding Indentification: 29 year old History of Present Illness: 29 year old at 32 wks presents with abdominal pain, hip pain, and vaginal bleeding. Patient states she had one episode of vaginal bleeding earlier today. She states she noted the blood on her underwear and pants. She has not noted any bleeding since that time. Patient denies LoF, contractions. Patient endorses vaginal discharge for what she perceives to be a yeast infection. She was seen a few weeks ago and diagnosed with BV via VP3, but she has not taken her medication yet. Patient states pelvic pain is mostly in the hip area. It hurts to move around, particularly in the morning. Patient states that as the day goes on, the pain initially gets better, but toward the end of the day her hips hurt to the point that she is having to go home early from work. She endorses good movement. Primary Care Physician: Dr. Martin FMR OB H&P: Current - Care : 4 Para: 0121 Gestational age: 32 wks Due date: 11/17/2019 FMR OB H&P: History - Past Medical History PMH: Panic disorder, not currently on medications - OB History OB History: SAB x2 - MANAGER CONTACT History MANAGER CONTACT History: Denies history of STD's or PID. - Surgical History Sx History: Denies - Social History Social History: Denies tobacco, alcohol, or drug use. - Family History Family History: Mother: HTN Father: DM type II FMR OB H&P: Medications - Current Home Medications: Medication Instructions Recorded Confirmed Type Pnv No.95/Ferrous Fum/Folic AC 1 each PO DAILY 07/21/19 09/22/19 History [ Formula Tablet] Clotrimazole 2% 3 Day Vag Cr 1 appful VAG HS #1 tube 09/22/19 Rx [Clotrimazole 2% 3 Day Vaginal Cream] metroNIDAZOLE [Flagyl] 500 mg PO BID 7 Days #14 tab 09/22/19 Rx Allergies/Adverse Reactions: Allergies Allergy/AdvReac Type Severity Reaction Status Date / Time No Known Allergies Allergy Verified 09/22/19 11:49 FMR OB H&P: ROS - Review of Systems General: denies: fever/chills, weight/appetite/sleep changes Eyes: denies: vision changes, scotomas ENT: denies: nasal congestion, rhinorrhea, sore throat Cardiovascular: denies: chest pain, palpitation, edema Respiratory: denies: cough, congestion, shortness of breath Gastrointestinal: denies: abdominal pain, nausea, vomiting Genitourinary (Female): reports: vaginal discharge, vaginal bleeding, vaginal pressure. denies: dysuria, contractions Musculoskeletal: reports: pain, stiffness, tenderness Neurologic: denies: numbness, syncope, seizures Integumentary: denies: itching, rash Hematologic/Lymphatic: denies: prolonged or excessive bleeding Psychological: reports: anxiety. denies: depression FMR OB H&P: Vital Signs - Maternal Vital signs: Vital Signs - First Documented Temp Pulse Resp BP 98.7 F 89 18 102/64 09/22/19 11:31 09/22/19 11:31 09/22/19 11:31 09/22/19 11:31 - Heart Tones Baseline: 130 Variability: moderate Acceleration: present Deceleration: absent Obion contractions every: Uterine irritability, no contractions; Reactive NST FMR OB H&P: Physical Exam - Physical Exam General: NAD, awake, alert and oriented HEENT: grossly normal vision, grossly normal hearing Heart: RRR, pulses present, no edema General: no respiratory distress Abdomen: soft, gravid, non-tender Musculoskeletal: pulses present, FROM in all four extremities Deviation from normal: Very tender to palpation along hip flexors, lateral hips Neurological: no tremor, no focal deficit Skin: no rash, capillary refill <2 seconds Lymphatic: no unusual bruising or bleeding, no purpura, no petechia Psychiatric: intact recent and remote memory, good judgement and insight, normal mood and affect - Pelvic Exam Vulva: normal hair distribution Cervix: no masses, no lesions, no blood Deviation from normal: white/green vaginal discharge at os FMR OB H&P: A/P - Problem List (1) Somatic dysfunction Current Visit: Yes Status: Acute Code(s): M99.09 - SEGMENTAL AND SOMATIC DYSFUNCTION OF ABDOMEN AND OTH REGIONS (2) Abdominal pain affecting , antepartum Current Visit: No Status: Acute Code(s): O26.899 - OTH RELATED CONDITIONS, UNSPECIFIED TRIMESTER; R10.9 - UNSPECIFIED ABDOMINAL PAIN (3) Current Visit: No Status: Acute Qualifiers: Weeks of gestation: 25 weeks Qualified Code(s): Z3A.25 - 25 weeks gestation of (4) Panic disorder Current Visit: No Status: Chronic Code(s): F41.0 - PANIC DISORDER [EPISODIC PAROXYSMAL ANXIETY] (5) Bacterial vaginosis in Current Visit: Yes Status: Acute Code(s): O23.599 - INFECTION OTH PRT GENITAL TRACT IN , UNSP TRIMESTER; B96.89 - OTH BACTERIAL AGENTS THE CAUSE OF DISEASES CLASSD ELSWHR Disposition: 29 year old at 32 wks presents with abdominal/hip pain and vaginal bleeding sIUP - 32 weeks - No contractions on tocometer or perceived by patient - Reactive strip - PTL scare at 25 wks s/p steroids x2 - No evidence of labor Vaginal bleeding - Noted one time today - Patient with untreated BV; she never picked up antibiotics - Sterile spec exam with no evidence of bleeding from os or in vagina - Green/white vaginal discharge noted on spec exam - VP3 collected; patient with no concerns regarding STD's - Sent in Rx for flagyl; advised to take antibiotics as prescribed Abdominal/hip pain - TTP along lateral hip and hip flexors bilaterally - Pelvic decompression performed - Performed stretching with patient and advised to stretch each morning - Patient instructed she can take tylenol for pain SAB x2 Hx PTD d/t oligohydramnios at 36 wks Dispo: VP3 pending; however, given previously diagnosed BV without treatment, will send in Rx. Patient advised to continue daily stretching. Follow up with primary OB as scheduled. Return precautions provided. Discussion: Date/Time: 09/22/19 1212 This H&P was discussed with Dr. Jarquin who agrees with the above documentation and plan. Signature: Madeleine Torres DO PGY-3 Addendum - Attending - Attending Attestation Date/Time: 09/22/19 2023 I personally evaluated the patient and discussed the management with Dr. London. I agree with the History, Examination, Assessment and Plan documented above.
== END | disposition home or self-care (01) ==
LOC: L&D/OP 11:09
PROVIDERS: ATTEND Obstetrics & Gynecology
DX: O46.93 Antepartum hemorrhage, unspecified, third trimester (principal); O26.893 Other specified pregnancy related conditions, third trimester; R10.2 Pelvic and perineal pain; M25.551 Pain in right hip; M25.552 Pain in left hip; O23.593 Infection of other part of genital tract in pregnancy, third trimester; B96.89 Other specified bacterial agents as the cause of diseases classified elsewhere; O99.343 Other mental disorders complicating pregnancy, third trimester; F41.0 Panic disorder [episodic paroxysmal anxiety]; Z3A.32 32 weeks gestation of pregnancy
CPT/HCPCS: 87480; 87510; 87660; J2590

== ENCOUNTER 2019-10-16 18:12 | Day surgery (SDC) | payer OTHER ==
[2019-10-16 19:11] VITALS: BP 111/64; TEMP 97.4; BMI 24.7
[2019-10-16] MEDS ORDERED: hydrALAZINE 20 MG/ML VIAL SLOW IVP PRN (19:20)
[2019-10-16] MEDS ORDERED: FLU VACC QS2019-20(6MOS UP)/PF 60 MCG/0.5 ML SYRINGE IM ONE (19:30)
--- NOTE | 2019-10-16 19:50 | PDOC.LDHP ---
Labor and Delivery H&P Chief complaint: other (Pelvic Pressure) HPI: 29 y/o at 35 and 3/7 weeks, s/p BMZ course earlier this for Threatened PTL. 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 Today, pt c/o continued pelvic pressure, but not contractions. Cervical check by me is: 2.5 to 3cm/50% effaced/-3 station/mid-position/medium to firm consistency). No vaginal itching reported. No Vag Discharge or odor noted. I doubt this is early labor. Current gestational age (weeks): 35 Due date: 11/17/19 Grav: 4 Para: 1 Current complications: other (PTL) Abnormal US findings: No Current medications: pre-andre vitamins Allergies/Adverse Reactions: Allergies Allergy/AdvReac Type Severity Reaction Status Date / Time No Known Allergies Allergy Verified 10/16/19 19:05 Social history: none - Physical Exam Vital signs reviewed and normal: yes General: NAD, resting Heart: RRR Lungs: CTAB Abdomen: gravid Extremeties: no edema FHT: category 1 - Vaginal Exam cm dilated: 3 Effacement: 50% Station: -3 - Assessment False Labor at 35 weeks - Plan -: DC Home, PTL precautions reviewed, clinic f/u within 48 hours scheduled.
[2019-10-16 20:09] LABS: Bacteria/HPF None Seen HPF (None Seen); Bilirubin Negative (Negative); Blood, Urine Negative (Negative); Clarity Clear (Clear); Glucose, Urine (Dipstick) 50 mg/dL (Negative); Leukocyte 250 Leu/uL (Negative); Nitrite Negative (Negative); Protein, Urine (Dipstick) Negative (Neg-Trace); Urobilinogen Normal mg/dL (Less than 2); WBC/HPF 0-3 HPF (0-3)
== END 2019-10-16 20:53 | disposition home health service (06) ==
LOC: L&D/OP 18:12
PROVIDERS: ATTEND Obstetrics & Gynecology
DX: O47.03 False labor before 37 completed weeks of gestation, third trimester (principal); Z3A.35 35 weeks gestation of pregnancy
CPT/HCPCS: 81001; 99283

== ENCOUNTER 2019-10-23 11:30 | Inpatient (IN) | payer OTHER ==
[2019-10-23] MEDS ORDERED: hydrALAZINE 20 MG/ML VIAL SLOW IVP PRN ×2 (12:29→22:06)
[2019-10-23] MEDS ORDERED: Misoprostol 200 MCG TAB PR PRN (12:29)
[2019-10-23] MEDS ORDERED: HYDROcodone/Acetaminophen 5/325 mg Tablet PO PRN ×4 (12:29→22:06)
[2019-10-23] MEDS ORDERED: Promethazine HCl 25 MG/ML VIAL IM PRN ×2 (12:29→22:06)
[2019-10-23] MEDS ORDERED: Diphenoxylate HCl/Atropine Tablet PO PRN ×2 (12:29)
[2019-10-23] MEDS ORDERED: Carboprost 250 MCG/ML AMP IM PRN (12:29)
[2019-10-23] MEDS ORDERED: Methylergonovine 0.2 MG/ML VIAL IM PRN ×2 (12:29→22:06)
[2019-10-23] MEDS ORDERED: Butorphanol Tartrate 1 MG/ML VIAL SLOW IVP PRN (12:29)
[2019-10-23] MEDS ORDERED: NS / Oxytocin 40 units/1000ml 1,000 ML IV PRN (12:29)
[2019-10-23] MEDS ORDERED: Acetaminophen 500 MG TAB PO PRN (12:29)
[2019-10-23] MEDS ORDERED: Lidocaine 1% (PF) 30 ML VIAL SC PRN (12:29)
[2019-10-23] MEDS ORDERED: Ondansetron PF 4 MG/2 ML Vial IVP PRN ×2 (12:29→22:06)
[2019-10-23] MEDS ORDERED: Ibuprofen 800 MG TAB PO PRN (12:29)
[2019-10-23] MEDS ORDERED: Penicillin G Potassium 5 MILL.UNITS in Sodium Chloride 0.9% 100 ML IVPB SCH (12:30)
[2019-10-23] MEDS ORDERED: NS w/ Oxytocin 10 units 500 ML IV SCH ×2 (12:30)
[2019-10-23] MEDS: Lactated Ringer's 1,000 ML IV SCH ×2 (12:39→17:17)
[2019-10-23 12:41] VITALS: BMI 26.0
[2019-10-23 13:19] LABS: Hemoglobin 10.7 g/dL (12.0-16.0); Mean Corpuscular Hemoglobin 26.9 pg (27.0-31.0); Mean Corpuscular Volume 81.6 fL (78.0-98.0); Mean Platelet Volume 8.7 fL (7.4-10.4); Platelet Count 199 thou/uL (130-400); RBC Distribution Width 13.6 % (11.5-14.5); Red Blood Cell (RBC) Count 3.97 mill/uL (4.20-5.40); White Blood Cell (WBC) Count 7.4 thou/uL (4.8-10.8)
[2019-10-23 13:56] LABS: HBSAg Index 0.28 S/CO (0-0.99); Hep B Surf Ag Non-Reactive S/CO (NonReactive)
[2019-10-23 13:57] LABS: Syphilis Antibody Nonreactive (Nonreactive); Syphilis Antibody Index 0.04 S/CO (<1.00 Non-Reactive)
[2019-10-23] MEDS: Penicillin G 2.5 MILL.units 2.5 MILL.UNITS in Premix Bag 1 BAG IVPB SCH ×2 (17:25→23:52)
[2019-10-23] MEDS ORDERED: Misoprostol 200 MCG TAB ONE (19:49)
[2019-10-23 20:30] LABS: HIV (1/2) Antibody/Antigen Non-Reactive (NonReactive); HIV 1/2 INDEX 0.22 S/CO (<1.00)
[2019-10-23] MEDS ORDERED: diphenhydrAMINE 25 MG CAP PO PRN (22:06)
[2019-10-23] MEDS ORDERED: Preparation H Ointment 28 GM TUBE PR PRN (22:06)
[2019-10-23] MEDS ORDERED: Misoprostol 200 MCG TAB VAG PRN (22:06)
[2019-10-23] MEDS ORDERED: Zolpidem Tartrate 5 MG TAB PO PRN (22:06)
[2019-10-23] MEDS ORDERED: Benzocaine-Menthol 82.5 ML CAN TOP PRN (22:06)
[2019-10-23] MEDS ORDERED: Milk Of Magnesia 30 ML UDCUP PO PRN (22:06)
[2019-10-23] MEDS ORDERED: Lanolin Ointment 7 GM TUBE TOP PRN (22:06)
[2019-10-23] MEDS ORDERED: Bisacodyl 10 MG SUPP PR PRN (22:06)
[2019-10-23] MEDS: NS / Oxytocin 40 units/1000ml 1,000 ML IV SCH (22:53)
[2019-10-23] MEDS: Ibuprofen 800 MG TAB PO SCH (23:49)
[2019-10-24] MEDS: Ibuprofen 800 MG TAB PO SCH ×3 (00:28→13:53)
[2019-10-24] MEDS: NS / Oxytocin 40 units/1000ml 1,000 ML IV SCH (00:28)
[2019-10-24 06:21] LABS: Hemoglobin 10.8 g/dL (12.0-16.0); Mean Corpuscular HGB CONC 32.3 g/dL (32.0-36.0); Mean Corpuscular Hemoglobin 26.5 pg (27.0-31.0); Platelet Count 186 thou/uL (130-400); RBC Distribution Width 13.7 % (11.5-14.5); Red Blood Cell (RBC) Count 4.07 mill/uL (4.20-5.40); White Blood Cell (WBC) Count 12.8 thou/uL (4.8-10.8)
--- NOTE | 2019-10-24 07:51 | PDOC.PP ---
Post Progress Note Post Day #: 1 PO intake tolerated: yes Flatus: yes Vital Signs (12 hours) Temp Pulse Resp BP Pulse Ox 10/24/19 04:56 98.4 F 65 16 107/58 L 98 10/24/19 00:15 98.9 F 61 14 101/58 L 97 10/23/19 23:20 98.5 F 62 14 116/61 97 Weight Weight 138 lb - Physical Examination General: NAD Cardiovascular: no m/r/g, RRR Respiratory: clear to auscultation bilaterally, non-labored breathing Abdominal: + bowel sounds, lochia, no distention Extremities: negative homans (B) Neurological: no gross focal deficits Psychiatric: A&Ox3, normal affect Result Diagrams: 10/24/19 05:42 Additional Labs: Post Labs Blood Type O POSITIVE 10/23/19 12:49 Hep Bs Antigen Non-Reactive S/CO (NonReactive) 10/23/19 12:49
[2019-10-24] MEDS ORDERED: Ferrous Sulfate 325 MG TAB PO SCH (08:00)
[2019-10-24 08:20] VITALS: BP 104/55
[2019-10-24] MEDS ORDERED: Adacel (T-DAP) 0.5 ML SYRINGE IM ONE (09:00)
[2019-10-24] MEDS ORDERED: Prenatal Vitamin 1 TAB PO SCH (09:00)
[2019-10-24] MEDS ORDERED: Varicella virus, LIVE 0.5 ML VIAL SC ONE (09:00)
[2019-10-24] MEDS ORDERED: Docusate Calcium (SURFAK) 240 MG CAP PO SCH (09:00)
[2019-10-24] MEDS ORDERED: Measles/Mumps/Rubella 10 MCG/0.5 ML VIAL SC ONE (09:00)
[2019-10-24 11:59] VITALS: TEMP 98.6
--- NOTE | 2019-10-25 01:54 | DN ---
DATE OF PROCEDURE: 10/23/2019 TIME: 2026 Central Standard Time. PREOPERATIVE DIAGNOSIS: Intrauterine at 36 weeks and 3 days with labor. POSTOPERATIVE DIAGNOSIS: Intrauterine at 36 weeks and 3 days with labor. PROCEDURE PERFORMED: Spontaneous vaginal delivery over first-degree small laceration of the perineum, which did not require sutures. FINDINGS: Viable male infant weighing 3229 g or 7 pounds 2 ounces with Apgars of 8 and 9. QUANTITATIVE BLOOD LOSS: 125 mL. COMPLICATIONS: None. PROCEDURE IN DETAIL: The patient presented to [facility] where she was admitted to the labor and delivery service. The patient underwent a normal and uneventful labor with normal cervical dilatation until she was found to be completely dilated. She was then allowed to push and was able to bring the baby down and delivered the baby in a vertex presentation without difficulties. Once the head delivered in occiput anterior position, the shoulders followed spontaneously along with the rest of the baby's body. Once out the baby's mouth and nose were bulb suctioned. The cord was clamped and cut and baby was handed to waiting attendants. Cord blood was collected. Gentle fundal massage was performed and the placenta delivered intact without problems. Hemostasis was assured. Quantitative blood loss was calculated. Inspection of the cervix, vaginal vault, and perineum did not reveal any lacerations needing suturing. Once again, hemostasis was within normal limits and the patient was allowed to recover in the labor and delivery room. Baby went to nursery. Job ID: [id number]
== END 2019-10-24 14:45 | disposition home or self-care (01) | DRG 807 ==
LOC: L&D 11:30 → 3SW 23:30
PROVIDERS: ADMIT Obstetrics & Gynecology; ATTEND Obstetrics & Gynecology
PROC: 10E0XZZ Delivery of Products of Conception, External Approach (ICD-10-PCS; principal; 2019-10-24)
DX: O60.14X0 Preterm labor third trimester with preterm delivery third trimester, not applicable or unspecified (principal); Z37.0 Single live birth; Z3A.36 36 weeks gestation of pregnancy; O70.0 First degree perineal laceration during delivery
CPT/HCPCS: 36415; 85027; 86780; 86850; 86900; 86901; 87340; 87389; J2540; J2590; J3490